=== PATIENT | male | born 1945 | race Caucasian/White ===

== ENCOUNTER 2021-03-07 19:18 | Emergency (ER) | payer MEDICARE, OTHER ==
[2021-03-07 19:52] LABS: HEMOGLOBIN 17.2 gm/dl (14.0-17.5); RED BLOOD COUNT 5.54 M/UL (4.20-5.50); WHITE BLOOD COUNT 15.9 K/UL (4.5-11.0)
[2021-03-07 20:16] LABS: BUN/CREATININE RATIO 21 (0-10)
== END 2021-03-07 23:58 | disposition home or self-care (01) ==
LOC: ER1 19:18
PROVIDERS: Physician Assistant Medical
DX: M25.512 Pain in left shoulder (principal); I25.10 Atherosclerotic heart disease of native coronary artery without angina pectoris; E11.9 Type 2 diabetes mellitus without complications; F17.200 Nicotine dependence, unspecified, uncomplicated
CPT/HCPCS: 36415; 71045; 73030; 80053; 82550; 82553; 83874; 84484; 85025; 93005; 99284

== ENCOUNTER 2021-12-12 14:20 | Emergency (ER) | payer OTHER ==
[2021-12-12 15:08] LABS: HEMOGLOBIN 18.3 gm/dl (14.0-17.5); RED BLOOD COUNT 5.9 M/UL (4.20-5.50); WHITE BLOOD COUNT 13.1 K/UL (4.5-11.0)
[2021-12-12 15:25] LABS: BUN/CREATININE RATIO 20 (0-10)
== END 2021-12-12 19:57 | disposition home or self-care (01) ==
LOC: ER1 14:20
PROVIDERS: Family Medicine
DX: S50.811A Abrasion of right forearm, initial encounter (principal); S50.12XA Contusion of left forearm, initial encounter; S80.11XA Contusion of right lower leg, initial encounter; E11.649 Type 2 diabetes mellitus with hypoglycemia without coma; R07.81 Pleurodynia; I10 Essential (primary) hypertension; Z88.6 Allergy status to analgesic agent; W01.10XA Fall on same level from slipping, tripping and stumbling with subsequent striking against unspecified object, initial encounter
CPT/HCPCS: 73100; 80053; 80307; 81001; 83605; 85025; 85610; 85730; 86850; 86900; 86901; 99283; G0480